=== PATIENT | female | born 1965 | race American Indian/Alaskan Native ===

== ENCOUNTER 2020-04-05 10:45 | Emergency (ER) | payer OTHER ==
[2020-04-05 10:51] VITALS: BP 163/72
--- NOTE | 2020-04-05 10:52 | Event Note ---
ED Screening Note ED Screening Note: known covid pos co cough no sob no fever pt refused MSE- to pcp This initial assessment/diagnostic orders/clinical plan/treatment(s) is/are subject to change based on patients health status, clinical progression and re- assessment by fellow clinical providers in the ED. Further treatment and workup at subsequent clinical providers discretion. Patient/guardian urged not to elope from the ED as their condition may be serious if not clinically assessed and managed. Initial orders include: xray ro pna
--- NOTE | 2020-04-05 11:30 | XRay Report ---
CHEST 2 VIEWS INDICATION / CLINICAL INFORMATION: MAIN. COMPARISON: None available. FINDINGS: SUPPORT DEVICES: None. HEART / MEDIASTINUM: No significant abnormality. LUNGS / PLEURA: No significant pulmonary or pleural abnormality. No pneumothorax. No confluent infilt rates or pleural effusions. ADDITIONAL FINDINGS: No significant additional findings. IMPRESSION: 1. No acute findings. Signer Name: Miki Glez MD Signed: 04/05/2020 11:25 AM Workstation Name: [id number]
--- NOTE | 2020-04-05 12:24 | Emergency Department Report ---
ED General Adult HPI - General Chief complaint: Upper Respiratory Infection Stated complaint: COUGH Time Seen by Provider: 04/05/20 10:51 Source: patient Mode of arrival: Ambulatory Limitations: No Limitations - History of Present Illness Initial comments: 54-year-old female presenting with chief complaint of cough. She states that she is on day 6 or 7 of symptoms of COVID-19 with a positive test. She states that she is here because she wanted to make sure she did not have pneumonia due to the worsening cough. Denies fever or difficulty breathing. Symptoms are moderate with no modifying factors. No other associated symptoms. - Related Data Previous Rx's Medication Instructions Recorded Last Taken Type Albuterol Mdi (or & Nicu Only) 2 puff IH QID PRN #8.5 gram 04/05/20 Unknown Rx [ProAir HFA Inhaler] Benzonatate 200 mg PO TID #21 capsule 04/05/20 Unknown Rx Allergies Allergy/AdvReac Type Severity Reaction Status Date / Time lisinopril AdvReac Unknown Verified 04/05/20 10:47 ED Review of Systems ROS: Stated complaint: COUGH Other details as noted in HPI Comment: All other systems reviewed and negative Respiratory: no symptoms reported ED Past Medical Hx - Past Medical History Hx Hypertension: Yes Hx Diabetes: Yes - Surgical History Past Surgical History?: No - Social History Smoking Status: Never Smoker Substance Use Type: None - Medications Home Medications: Home Medications Medication Instructions Recorded Confirmed Last Taken Type Albuterol Mdi (or & Nicu Only) 2 puff IH QID PRN #8.5 gram 04/05/20 Unknown Rx [ProAir HFA Inhaler] Benzonatate 200 mg PO TID #21 capsule 04/05/20 Unknown Rx ED Physical Exam - General Limitations: No Limitations General appearance: alert, in no apparent distress - Head Head exam: Present: atraumatic, normocephalic - Eye Eye exam: Present: normal appearance - ENT ENT exam: Present: mucous membranes moist - Neck Neck exam: Present: normal inspection - Respiratory Respiratory exam: Present: normal lung sounds bilaterally, other (Persistent dry cough). Absent: respiratory distress - Cardiovascular Cardiovascular Exam: Present: regular rate, normal rhythm. Absent: systolic murmur, diastolic murmur, rubs, gallop - GI/Abdominal GI/Abdominal exam: Present: soft, normal bowel sounds - Extremities Exam Extremities exam: Present: normal inspection - Back Exam Back exam: Present: normal inspection - Neurological Exam Neurological exam: Present: alert, oriented X3 - Psychiatric Psychiatric exam: Present: normal affect, normal mood - Skin Skin exam: Present: warm, dry, intact, normal color. Absent: rash ED Course Vital Signs 04/05/20 10:48 Temperature 98.1 F Pulse Rate 66 Respiratory 20 Rate Blood Pressure 163/72 O2 Sat by Pulse 98 Oximetry ED Medical Decision Making - Radiology Data Radiology results: report reviewed neg cxr - Medical Decision Making Patient known Covid positive presents because of persistent cough. She is concerned she may have pneumonia. Her exam is normal other than a persistent d ry cough. Chest x-ray obtained is negative for pneumonia. Advised supportive care and PCP follow-up after quarantine. Return if worse. She has O2 monitor at home and will monitor for readings under 90% and will return if needed. - Differential Diagnosis covid, pna Critical care attestation.: If time is entered above; I have spent that time in minutes in the direct care of this critically ill patient, excluding procedure time. ED Disposition Clinical Impression: COVID-19 Disposition: DC-01 TO HOME OR SELFCARE Is pt being admited?: No Condition: Good Instructions: COVID-19 Prescriptions: Benzonatate 200 mg PO TID #21 capsule Albuterol Mdi (or & Nicu Only) [ProAir HFA Inhaler] 2 puff IH QID PRN #8.5 gram PRN Reason: Shortness Of Breath Referrals: PRIMARY CARE, [Primary Care Provider] - 3-5 Days Time of Disposition: 12:23
== END 2020-04-05 12:39 | disposition home or self-care (01) ==
LOC: ED 10:45
DX: U07.1 COVID-19 (principal); I10 Essential (primary) hypertension; E11.9 Type 2 diabetes mellitus without complications; Z79.899 Other long term (current) drug therapy; Z88.8 Allergy status to other drugs, medicaments and biological substances
CPT/HCPCS: 71046

== ENCOUNTER 2020-09-20 09:19 | Day surgery (SDC) | payer OTHER ==
[~2020-09-20 09:19] MED LIST: BUPIVACAINE-EPINEPHRINE/PF 0.25%-1:200,000 (30 ML) VIAL INFILTRATI ONE; EPINEPHrine 30 MG/30 ML INJ IV ONE; SODIUM CHLORIDE 0.9% P/F 10 ML VIAL INFILTRATI ONE; ceFAZolin/Water 2 GM/20 ML 2 GM/20 ML SYRINGE IV NR
[2020-09-20] MEDS ORDERED: LACTATED RINGERS 1,000 ML ONE (10:22)
[2020-09-20] MEDS ORDERED: LACTATED RINGERS 1,000 ML IV SCH (11:00)
[2020-09-20] MEDS ORDERED: BUPIVACAINE/PF (0.5%) 5 MG/1 ML 30 ML VIAL INFILTRATI ONE ×3 (11:03→15:10)
[2020-09-20] MEDS ORDERED: HYDROmorphone 1 MG/1 ML INJ IV PRN ×2 (11:09)
[2020-09-20] MEDS ORDERED: fentaNYL 100 MCG/2 ML INJ IV NR (11:09)
[2020-09-20] MEDS ORDERED: ONDANSETRON 4 MG/2 ML INJ IV PRN (11:09)
--- NOTE | 2020-09-20 11:10 | Anesthesia Day of Surgery ---
Anesthesia Day of Surgery - Day of Surgery Patient Examined: Yes Patient H&P Reviewed: Yes Patient is NPO: Yes
--- NOTE | 2020-09-20 11:12 | Anesthesia Consultation ---
Anesthesia Consult and Med Hx Date of service: 09/20/20 - Airway Anesthetic Teeth Evaluation: Chipped ROM Head & Neck: Adequate Mental/Hyoid Distance: Adequate Mallampati Class: Class II Intubation Access Assessment: Good - Pre-Operative Health Status ASA Pre-Surgery Classification: ASA2 Proposed Anesthetic Plan: General Nerve Block: IS - Pulmonary Hx Smoking: Yes (04/09-04/07 PPD) Hx Sleep Apnea: No (BUSTER PRE SCREEN LOW RISK) - Cardiovascular System Hx Hypertension: Yes (X 5 YRS) - Central Nervous System Hx Back Pain: Yes Hx Psychiatric Problems: No - Endocrine Hx Non-Insulin Dependent Diabetes: Yes - Hematic Hx Anemia: No Hx Sickle Cell Disease: No - Other Systems Hx Cancer: No Hx Obesity: Yes
[2020-09-20] MEDS ORDERED: MIDAZOLAM 2 MG/2 ML INJ IV ONE (11:21)
[2020-09-20] MEDS ORDERED: propofoL 200 MG/20 ML VIAL IV ONE ×2 (11:37→14:26)
[2020-09-20] MEDS ORDERED: MIDAZOLAM 2 MG/2 ML INJ IV NR (12:00)
[2020-09-20] MEDS ORDERED: .SODIUM CHLORIDE 0.9% IRRIG SOLN 3000 ML IR ONE (13:23)
[2020-09-20] MEDS ORDERED: EPINEPHrine/PF 1 MG/1 ML INJ IRRIGATION ONE (13:23)
[2020-09-20] MEDS ORDERED: SODIUM CHLORIDE P/F VIAL 10 ML 10 ML ONE (13:39)
[2020-09-20] MEDS ORDERED: NEOSTIGMINE 10MG/10 ML INJ MDV ONE (14:20)
[2020-09-20] MEDS ORDERED: GLYCOPYRROLATE 0.4 MG/2 ML INJ ONE ×2 (14:20)
[2020-09-20] MEDS ORDERED: fentaNYL 100 MCG/2 ML INJ ONE (14:25)
[2020-09-20] MEDS ORDERED: ROCURONIUM 50 MG/5 ML INJ IV ONE (14:30)
[2020-09-20] MEDS ORDERED: PHENYLEPHRINE/NS 1,000 MCG/10 ML SYRINGE (OR USE) IV ONE (14:30)
[2020-09-20] MEDS ORDERED: LIDOCAINE MPF (2%) 20 MG/1 ML VIAL 5 ML ONE (14:30)
[2020-09-20] MEDS ORDERED: ONDANSETRON 4 MG/2 ML INJ ONE (14:30)
[2020-09-20] MEDS ORDERED: ALBUTEROL 8.5 GM MDI INHALATION IH ONE (14:45)
--- NOTE | 2020-09-20 14:51 | Procedure Note ---
Date of procedure: 09/20/20 Pre-op diagnosis: Right shoulder pain full-thickness rotator cuff tear Post-op diagnosis: same Procedure: Arthroscopy right shoulder with subacromial decompression and rotator cuff tendon using suture anchors Procedure The patient was brought to the OR after being given a scalene nerve block for postop pain management . He was placed in the OR table in supine position following induction and intubation by anesthesia patient was placed in the right lateral decubitus position the left upper extremity was prepped and draped in the usual sterile manner. A timeout procedure was done to identify the patient and the correct operative site. Routine arthroscopic portals were made following introduction of the arthroscope and instruments and insufflation of the subacromial space with normal saline solution patient was noted to have a full-thickness rotator cuff tear which extended from the supraspinatus anteriorly towards the infraspinatus posteriorly in addition he was also noted to have abundant synovial bursal thickening as well as significant impingement from the acromion and acromioclavicular joints. Using a tissue ablator the soft tissue was removed from both the bursal tissues as well as the periosteal tissues overlying the distal acromion and acromioclavicular joints A large bur was used to debride the bony impingement again this was done under arthroscopic visualization. The anatomic footprint was then seen and debrided using the tissue ablator. The rotator cuff tendons was grasped using a tissue grasper and appeared to move well in the direction of anatomic repair at the footprint. Next 2 suture anchor sutures were placed into these supraspinatus tendon anteriorly as well as the infraspinatus tendon posteriorly the suture anchors were secured into the greater tuberosity followed by tightening of the sutures and pulling the rotator cuff tendon firmly onto the anatomic footprint arthroscopic photographs were obtained showing good placement of the rotator cuff repair following this the wound was copiously irrigated via stab wounds were repaired with 2 postop dressings were applied the patient was extubated and was taken to postanesthesia recovery in stable condition. Anesthesia: MAC, regional Surgeon: JOSE HARRIS (Tootie Chu M.D. 1st assist) Estimated blood loss: minimal Pathology: none Condition: stable Disposition: PACU
[2020-09-20 15:46] VITALS: BP 154/67
--- NOTE | 2020-09-20 17:16 | Post Anesthesia Evaluation ---
- Post Anesthesia Evaluation Patient Participated: Yes Airway Patent: Yes Stable Respiratory Function: Yes Nausea/Vomiting: No Temp > 96.8F: Yes Pain Manageable: Yes Adequeate Hydration: Yes Anesthesia Complications: No Block Receding Appropriately: Yes Patient on Ventilator: No
== END 2020-09-20 09:20 | disposition home or self-care (01) ==
LOC: OR 09:19
PROVIDERS: ATTEND Orthopaedic Surgery
DX: M75.101 Unspecified rotator cuff tear or rupture of right shoulder, not specified as traumatic (principal); F17.210 Nicotine dependence, cigarettes, uncomplicated; E78.00 Pure hypercholesterolemia, unspecified; I10 Essential (primary) hypertension; E66.9 Obesity, unspecified; E11.9 Type 2 diabetes mellitus without complications; Z88.8 Allergy status to other drugs, medicaments and biological substances; Z79.899 Other long term (current) drug therapy; Z79.84 Long term (current) use of oral hypoglycemic drugs; Z98.890 Other specified postprocedural states; Z68.31 Body mass index [BMI] 31.0-31.9, adult
CPT/HCPCS: 29826; 29827; 64415; 82962; A4217; C1713; J0171; J0690; J1170; J2250; J2370; J2405; J2704; J2710; J3010; J7120; L1830; V2790